=== PATIENT | female | born 2000 | race Caucasian/White ===

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

== ENCOUNTER → 2020-07-20 | Outpatient (CLI) | payer OTHER ==
--- NOTE | 2020-07-20 15:31 | MRI ---
EXAM DESCRIPTION: Brain w/o Contrast: MRI. CLINICAL HISTORY: GENERALIZED CONVULSIVE EPILEPSY COMPARISON: None. TECHNIQUE: Multiplanar, high-field MRI unit, multiple diffusion sequences, multiple conventional sequences without contrast. FINDINGS: Normal FLAIR and T2-weighted signal in the periventricular white matter and sub-cortical white matter .. Normal signal in the bilateral basal ganglia. Normal signal in the brainstem and cerebellar hemispheres. Concordance of the diffusion and non-diffusion sequences with no diffusion restriction. Cortical sulci, ventricles, and other CSF spaces, and the subdural spaces are normally configured for patients age. No effacement or displacement. No midline shift. No extra-axial hemorrhage. Normal flow signal void in the major vessels of the sycuan Mack[place], and the venous sinuses. IACs are symmetric bilaterally. No fluid in the bilateral mastoid air cells. No mass effect in the bilateral cerebellopontine angles. Pituitary gland occupies the entire sella. Base of the cerebellar tonsils is at the level of the foramen magnum. Mucoperiosteal thickening in the ethmoid and frontal paranasal sinuses with donald bullosa in the left middle turbinate increased mucosal mucosal and turbinate thickening, and deviation of the posterior septum to the right, narrowing of the right nasal passage, and anterior septal deviation to the left. The bony calvarium is intact. Increased T2-weighted signal in the optic nerve sheaths at the optic nerve globe junction. IMPRESSION: 1. Minimal edema in the distal optic nerves at the entry into the bilateral optic globes. This can be associated with females of reproductive age and large body habitus. Pituitary gland normal size in the sella. Correlate for visual abnormalities. 2. Remainder of the brain is unremarkable with no intra-axial extra-axial hemorrhage, no acute or subacute CVA. 3. Inflammatory changes in the sinuses and nasal passageways. Electronically signed by: Stanley Fletcher MD 07/20/2020 3:29 PM CDT
== END ==
LOC: MRI 14:26
PROVIDERS: ATTEND Emergency Medicine
DX: G40.309 Generalized idiopathic epilepsy and epileptic syndromes, not intractable, without status epilepticus (principal); H47.10 Unspecified papilledema; J01.90 Acute sinusitis, unspecified